=== PATIENT | female | born 1990 | race Caucasian/White ===

== ENCOUNTER 2020-06-25 13:36 | Outpatient (CLI) | payer OTHER | END 2020-06-25 13:39 | disposition home or self-care (01) | LOC: RAD 13:36 | PROVIDERS: ATTEND Podiatrist Foot Surgery | DX: M72.2 Plantar fascial fibromatosis (principal) ==

== ENCOUNTER 2020-07-04 11:59 | Outpatient (CLI) | payer OTHER | END 2020-07-04 12:06 | disposition home or self-care (01) | LOC: MRI 11:59 | PROVIDERS: ATTEND Orthopaedic Surgery Orthopaedic Surgery of the Spine | DX: M41.84 Other forms of scoliosis, thoracic region (principal); M41.44 Neuromuscular scoliosis, thoracic region | CPT/HCPCS: 72146 ==